=== PATIENT | female | born 1995 | race Caucasian/White ===

== ENCOUNTER → 2017-03-18 11:59 | Emergency (ER) | payer BC ==
[~2017-03-18 11:59] MED LIST: Aspirin Low Dose CHEW TAB* 81 MG PO ONE; Iohexol 350* (CONTRAST) 500 ML MDV IV ONE; NS 0.9% 1000 ML* 1,000 ML IV ONE
[2017-03-18 12:06] VITALS: BP 124/82
[2017-03-18 13:07] LABS: Hematocrit 38 % (35-47); Hemoglobin 12.7 g/dl (12.0-16.0); Mean Corpuscular HGB Conc 34 g/dl (31-36); Mean Corpuscular Hemoglobin 31 pg (27-31); Mean Corpuscular Volume 91 fL (80-97); Mean Platelet Volume 9 um3 (7.4-10.4); Red Blood Count 4.13 10^6/ul (4.0-5.4); Red Cell Distribution Width 13 % (10.5-15); White Blood Count 6.3 10^3/ul (3.5-10.8)
[2017-03-18 13:22] LABS: ALT 13 U/L (7-52); AST 19 U/L (13-39); Alkaline Phosphatase 58 U/L (34-104); Anion Gap 4 mmol/L (2-11); BUN/Creatinine Ratio 9.6 (8-20); Blood Urea Nitrogen 8 mg/dL (6-24); CO2 Carbon Dioxide 25 mmol/L (22-32); Calcium 8.7 mg/dL (8.6-10.3); Chloride 107 mmol/L (101-111); EGFR African American 111.6 (>60); EGFR Non-African American 86.8 (>60); Globulin 3.1 g/dL (2-4); Glucose 93 mg/dL (70-100); Sodium 136 mmol/L (133-145); Total Protein 7.1 g/dL (6.4-8.9)
--- NOTE | 2017-03-18 13:43 | RAD ---
INDICATION: Chest pain COMPARISON: None TECHNIQUE: An AP portable view obtained at 1320 hours is submitted. FINDINGS: Bones/Soft Tissues: There are no acute bony findings. Cardiomediastinal: The cardiomediastinal silhouette is normal. Lungs: There are no infiltrates. Pleura: There are no pleural effusions. Other: None IMPRESSION: NO ACTIVE DISEASE
--- NOTE | 2017-03-18 13:55 | RAD ---
HISTORY: Left leg pain COMPARISONS: None relevant TECHNIQUE: Multiple transverse and longitudinal ultrasound images were obtained of the left lower extremity from the level of the common femoral vein inferiorly through to the infrapopliteal veins using grayscale, color Doppler, and spectral Doppler imaging with and without compression and with augmentation. Comparison images were obtained of the contralateral common femoral vein. FINDINGS: VEINS: The venous system of the left lower extremity is compressible throughout its course, with normal flow on color Doppler imaging and normal response to augmentation on spectral Doppler imaging. SOFT TISSUES: Unremarkable. OTHER FINDINGS: None. IMPRESSION: NO LEFT LOWER EXTREMITY DEEP VEIN THROMBOSIS
--- NOTE | 2017-03-18 15:04 | RAD ---
INDICATION: Chest pain. Short of breath. Evaluate for pulmonary embolus. COMPARISON: Chest x-ray March 18, 2017 TECHNIQUE: Axial source images were obtained from the thoracic inlet to the hemidiaphragms following administration of [address] angiographic technique was utilized. Coronal and sagittal reconstructed images were acquired. CHEST FINDINGS: Neck/thyroid: The visualized neck to include the thyroid appear normal. Chest wall: There are no acute abnormalities of the bony thorax or chest wall. There is no supraclavicular, infraclavicular, or axillary lymphadenopathy. Lungs : There are no pulmonary parenchymal masses or infiltrates. The pulmonary interstitium appears normal. There are no endobronchial lesions. Cardiomediastinal structures: There is no CT evidence of acute pulmonary embolic disease. The heart is normal in size. There is no pericardial effusion. There is no evidence of aortic aneurysm or dissection. There is no mediastinal or hilar adenopathy. The esophagus appears normal. Pleura : There are no pleural-based masses or effusions. Other: None. IMPRESSION: NO CT EVIDENCE OF ACUTE PULMONARY EMBOLIC DISEASE. LUNGS CLEAR.
--- NOTE | 2017-03-18 16:04 | ED ---
Mahnaz Lopez Thomas, scribed for Khanh Whitley MD on 03/18/17 at 1248 . HPI Chest Pain - HPI Summary HPI Summary: The pt is a 21 y/o F referred to ED from [facility] c/o for the last three days. The pain began when she was walking. The pain is intermittent. The pt rates the pain 4/10. The pain is aggravated and alleviated by nothing. It is not aggravated by breathing. The patient has treated the pain with [employer]. Pt additionally c/o chills, R calf pain (onset 7 days ago and resolved 4 days ago), and SOB (some yesterday). Pt denies palpitations. She is not currently on oral contraceptives but she was on oral contraceptives until 2 months ago. PMHx: previously healthy. PSHx: none. SHx: no smoking, occasional drinking. FHx: DVT, CAD, VSD (brother). - History of Current Complaint Chief Complaint: EDChestPainROMI Time Seen by Provider: 03/18/17 12:29 Hx Obtained From: Patient Onset/Duration: Started Days Ago - onset three days ago, Still Present Timing: Intermittent Pain Intensity: 4 Pain Scale Used: 0-10 Numeric Aggravating Factor(s): Nothing Alleviating Factor(s): Nothing Associated Signs and Symptoms: Positive: Chest Pain, Shortness of Breath - some yesterday, Chills, Calf Pain/Swelling - R calf pain onest 7 days ago and resolved 4 days ago. Negative: Palpitations - Allergy/Home Medications Allergies/Adverse Reactions: Allergies Allergy/AdvReac Type Severity Reaction Status Date / Time No Known Allergies Allergy Verified 03/18/17 12:04 PMH/Surg Hx/FS Hx/Imm Hx Previously Healthy: Yes Endocrine/Hematology History: Denies: Hx Diabetes Cardiovascular History: Denies: Hx Hypertension - Surgical History Surgery Procedure, Year, and Place: None Infectious Disease History: No Infectious Disease History: Denies: Traveled Outside the [place] in Last 30 Days - Family History Known Family History: Positive: Cardiac Disease, Other - DVT, VSD - Social History Alcohol Use: Occasionally Substance Use Type: Reports: None Smoking Status (MU): Never Smoked Tobacco Review of Systems Positive: Chills Positive: Chest Pain - onset three days ago, intermittent. Negative: Palpitations Positive: Shortness Of Breath - some yesterday Positive: Other - R calf pain onset 7 days ago and relieved 4 days ago All Other Systems Reviewed And Are Negative: Yes Physical Exam Triage Information Reviewed: Yes Vital Signs On Initial Exam: Initial Vitals Temp Pulse Resp BP Pulse Ox 98.2 F 73 16 124/82 100 03/18/17 12:04 03/18/17 12:04 03/18/17 12:04 03/18/17 12:04 03/18/17 12:04 Vital Signs Reviewed: Yes Appearance: Positive: Well-Appearing, No Pain Distress Skin: Positive: Warm, Skin Color Reflects Adequate Perfusion Head/Face: Positive: Normal Head/Face Inspection Eyes: Positive: EOMI ENT: Positive: Normal ENT inspection, Hearing grossly normal Neck: Positive: Nontender Respiratory/Lung Sounds: Positive: Clear to Auscultation, Breath Sounds Present Cardiovascular: Positive: RRR. Negative: Murmur Abdomen Description: Positive: Nontender Musculoskeletal: Positive: Normal, Strength/ROM Intact, Other - no pain on palpation of her legs. Negative: Edema Left, Edema Right Neurological: Positive: Sensory/Motor Intact, Alert, Oriented to Person Place, Time, CN Intact II-III Psychiatric: Positive: Normal - [place] Coma Scale Best Eye Response: 4 - Spontaneous Best Motor Response: 6 - Obeys Commands Best Verbal Response: 5 - Oriented Coma Scale Total: 15 Diagnostics - Vital Signs Vital Signs Temp Pulse Resp BP Pulse Ox 03/18/17 12:04 98.2 F 73 16 124/82 100 - Laboratory Lab Results: Lab Results 03/18/17 03/18/17 03/18/17 Range/Units 12:52 12:52 12:52 WBC 6.3 (3.5-10.8) 10^3/ul RBC 4.13 (4.0-5.4) 10^6/ul Hgb 12.7 (12.0-16.0) g/dl Hct 38 (35-47) % MCV 91 (80-97) fL MCH 31 (27-31) pg MCHC 34 (31-36) g/dl RDW 13 (10.5-15) % Plt Count 230 (150-450) 10^3/ul MPV 9 (7.4-10.4) um3 Neut % (Auto) 66.1 (38-83) % Lymph % (Auto) 23.5 L (25-47) % [place] % (Auto) 6.6 (1-9) % Eos % (Auto) 3.3 (0-6) % Baso % (Auto) 0.5 (0-2) % Absolute Neuts (auto) 4.2 (1.5-7.7) 10^3/ul Absolute Lymphs (auto) 1.5 (1.0-4.8) 10^3/ul Absolute Monos (auto) 0.4 (0-0.8) 10^3/ul Absolute Eos (auto) 0.2 (0-0.6) 10^3/ul Absolute Basos (auto) 0 (0-0.2) 10^3/ul Absolute Nucleated RBC 0 10^3/ul Nucleated RBC % 0 D-Dimer, Quantitative (Less Than 230) ng/mL Sodium 136 (133-145) mmol/L Potassium 4.0 (3.5-5.0) mmol/L Chloride 107 (101-111) mmol/L Carbon Dioxide 25 (22-32) mmol/L Anion Gap 4 (2-11) mmol/L BUN 8 (6-24) mg/dL Creatinine 0.83 (0.51-0.95) mg/dL Est GFR ( Amer) 111.6 (>60) Est GFR (Non-Af Amer) 86.8 (>60) BUN/Creatinine Ratio 9.6 (8-20) Glucose 93 (70-100) mg/dL Lactic Acid (0.5-2.0) mmol/L Calcium 8.7 (8.6-10.3) mg/dL Total Bilirubin 1.00 (0.2-1.0) mg/dL AST 19 (13-39) U/L ALT 13 (7-52) U/L Alkaline Phosphatase 58 (34-104) U/L Troponin I 0.00 (<0.04) ng/mL B-Natriuretic Peptide 14 ( - 100) pg/mL Total Protein 7.1 (6.4-8.9) g/dL Albumin 4.0 (3.2-5.2) g/dL Globulin 3.1 (2-4) g/dL Albumin/Globulin Ratio 1.3 (1-3) Beta HCG, Quant < 0.60 mIU/mL 03/18/17 03/18/17 03/18/17 Range/Units 12:52 12:52 15:34 WBC (3.5-10.8) 10^3/ul RBC (4.0-5.4) 10^6/ul Hgb (12.0-16.0) g/dl Hct (35-47) % MCV (80-97) fL MCH (27-31) pg MCHC (31-36) g/dl RDW (10.5-15) % Plt Count (150-450) 10^3/ul MPV (7.4-10.4) um3 Neut % (Auto) (38-83) % Lymph % (Auto) (25-47) % [place] % (Auto) (1-9) % Eos % (Auto) (0-6) % Baso % (Auto) (0-2) % Absolute Neuts (auto) (1.5-7.7) 10^3/ul Absolute Lymphs (auto) (1.0-4.8) 10^3/ul Absolute Monos (auto) (0-0.8) 10^3/ul Absolute Eos (auto) (0-0.6) 10^3/ul Absolute Basos (auto) (0-0.2) 10^3/ul Absolute Nucleated RBC 10^3/ul Nucleated RBC % D-Dimer, Quantitative < 200 (Less Than 230) ng/mL Sodium (133-145) mmol/L Potassium (3.5-5.0) mmol/L Chloride (101-111) mmol/L Carbon Dioxide (22-32) mmol/L Anion Gap (2-11) mmol/L BUN (6-24) mg/dL Creatinine (0.51-0.95) mg/dL Est GFR ( Amer) (>60) Est GFR (Non-Af Amer) (>60) BUN/Creatinine Ratio (8-20) Glucose (70-100) mg/dL Lactic Acid 0.6 (0.5-2.0) mmol/L Calcium (8.6-10.3) mg/dL Total Bilirubin (0.2-1.0) mg/dL AST (13-39) U/L ALT (7-52) U/L Alkaline Phosphatase (34-104) U/L Troponin I 0.00 (<0.04) ng/mL B-Natriuretic Peptide ( - 100) pg/mL Total Protein (6.4-8.9) g/dL Albumin (3.2-5.2) g/dL Globulin (2-4) g/dL Albumin/Globulin Ratio (1-3) Beta HCG, Quant mIU/mL Result Diagrams: 03/18/17 12:52 03/18/17 12:52 Lab Statement: Any lab studies that have been ordered have been reviewed, and results considered in the medical decision making process. - Radiology CXR Xray Interpretation: No Acute Changes - CXR shows no active disease. ED physician has reviewed this radiology report and agrees. Radiology Interpretation Completed By: Radiologist - CT CTA Chest/Thorax CT Interpretation: No Acute Changes - NO CT EVIDENCE OF ACUTE PULMONARY EMBOLIC DISEASE. LUNGS CLEAR. ED physician has reviewed this radiology report and agrees. CT Interpretation Completed By: Radiologist - EKG 12:31 Cardiac Rate: NL - 67 BPM EKG Interpretation: No STEMI 14:49 Cardiac Rate: Bradycardia - 56 BPM EKG Interpretation: No STEMI. - Additional Comments Diagnostic Additional Comments: US LLE. Interpreted by radiologist. Impression: no LLE DVT. ED physician has reviewed this radiology report and agrees. Chest Pain Course/Dx - Course Assessment/Plan: The pt is a 21 y/o F referred to ED from [facility] c/o for the last three days. The pain began when she was walking. The pain is intermittent. The pt rates the pain 4/10. The pain is aggravated and alleviated by nothing. It is not aggravated by breathing. The patient has treated the pain with [employer]. Pt additionally c/o chills, R calf pain (onset 7 days ago and resolved 4 days ago), and SOB (some yesterday). Pt denies palpitations. She is not currently on oral contraceptives but she was on oral contraceptives until 2 months ago. PMHx: previously healthy. PSHx: none. SHx: no smoking, occasional drinking. FHx: DVT, CAD, VSD (brother). The patient was given ASA and IV fluids. Bloodwork shows d-dimer less than 200. EKG at 12:31 shows no STEMI. Repeat EKG at 14:49 shows no STEMI. CXR shows no active disease. US LLE shows no DVT. CTA Chest/Thorax shows NO CT EVIDENCE OF ACUTE PULMONARY EMBOLIC DISEASE. LUNGS CLEAR. ED physician has reviewed these radiology reports and agrees. - Diagnoses Provider Diagnoses: Atypical chest pain Discharge - Discharge Plan Condition: Good Disposition: HOME Patient Education Materials: Noncardiac Chest Pain (ED) Referrals: [facility] - MREddie [Primary Care Provider] - The documentation as recorded by the Mahnaz levy Thomas accurately reflects the service I personally performed and the decisions made by Gutierrez vu Walter, MD.
== END | disposition home or self-care (01) ==
LOC: ED 11:59
DX: R07.89 Other chest pain (principal); R06.02 Shortness of breath; R68.83 Chills (without fever)
CPT/HCPCS: 36415; 71010; 71275; 80053; 83605; 83880; 84484; 84702; 85025; 85379; 93005; 99282; A9270-GY; Q9967